=== PATIENT | female | born 2000 | race Caucasian/White ===

== ENCOUNTER 2022-08-01 16:14 | Emergency (ER) | payer BC ==
[~2022-08-01] VITALS: Ht 172.7 cm; Wt 97.7 kg
[2022-08-01 16:30] VITALS: BP 164/96; PULSE 83; TEMP 98.9
== END 2022-08-01 17:52 | disposition home or self-care (01) ==
LOC: COL.ER 16:14
DX: S06.0X0A Concussion without loss of consciousness, initial encounter (principal); S00.01XA Abrasion of scalp, initial encounter; F17.200 Nicotine dependence, unspecified, uncomplicated; Z28.310 Unvaccinated for COVID-19; W20.8XXA Other cause of strike by thrown, projected or falling object, initial encounter